=== PATIENT | male | born 1975 | race Caucasian/White ===

== ENCOUNTER 2016-10-18 22:54 | Emergency (ER) | payer OTHER ==
[~2016-10-18] VITALS: Ht 195.6 cm; Wt 136.4 kg
[~2016-10-18 22:54] MED LIST: Amoxicillin/Clavulanate K PO; LISI1TAB PO
[2016-10-18 22:56] VITALS: BP 132/82; PULSE 75; RESP 16; O2SAT 95
[2016-10-19 00:04] LABS: BASOPHILS % (AUTO) 0.2 % (0-3); EOSINOPHILS % (AUTO) 1.8 % (0-5); MONOCYTES % (AUTO) 13.3 % (4-12); Mean Corpuscular Hemoglobin 30.2 pg (27.0-35.0); Mean Corpuscular Volume 91.5 fL (81-100); NEUTROPHILS % (AUTO) 47.8 % (40-74); Platelet Count 198 bil/L (150-400)
--- NOTE | 2016-10-19 00:44 | ED.REPORT ---
HPI-URI / Cough / Cold Date of Service Oct 19, 2016 ED Provider: Michele Berumen DO A 41 year old male with a history of hypertension, sleep apnea, difficulty voiding presents to the ED complaining of a productive cough. The pt's symptoms began two days ago with chills and body aches. This progressed to fever of 101.2 degrees, abdominal pain, back pain, difficulty voiding his bladder, and cough. He denies dysuria. The pt was seen today in Urgent Care and told to stay hydrated and take Advil. He has done so but his symptoms have continued to worsen. Nursing Notes Stated Complaint: ABD/ FEVER Chief Complaint: FLU/Cold Symptoms Nursing Notes Reviewed: Yes Allergies: Coded Allergies: No Known Allergies (Unverified Allergy, Unknown, 10/18/16) Scheduled ([Amoxicillin/Clavulanate K]) 1 TAB TABLET 1 TAB PO BID Lisinopril/Hydrochlorothiazide (Zestoretic 20-12.5 Mg Tablet) 1 Each Tablet 1 TAB PO DAILY General Time Seen by MD: 00:44 Chief Complaint Other (Cough) Hx Obtained From: Patient Arrived By: Walk-in Onset Occurred: 2 days ago Symptom Duration: Since onset Recent Healthcare: No recent hospitalization, Recent doctor visit Similar Sx Previous: No Past Medical History Past Medical History hypertension sleep apnea difficulty voiding Past Surgical History none reported Smoking History Unknown if Ever Smoker Social History Other Social History: Ambulatory Status Independent Review of Systems Review of Systems Note: difficulty voiding Constitutional: Reports: Chills, Fever Respiratory: Reports: Prod cough, clear GI: Reports: Abdominal pain, Denies: Nausea, Vomiting Complete sys rev & neg: except as marked. Male: Denies Dysuria Musculoskeletal: Reports: Back pain, Myalgia Physical Exam Initial Vital Signs Vital Signs (First) Date Time Temp Pulse Resp B/P Pulse Ox O2 Delivery O2 Flow Rate FiO2 10/18/16 22:56 36.9 75 16 132/82 95 Room Air Initial VS: Reviewed General/Constitutional: Awake, Alert ENT: Atraumatic, Airway patent, Mucous membranes moist Respiratory / Chest: Atraumatic, No respiratory distress rhonchi and egophony in the left chest Head / Eyes: Atraumatic, Normocephalic, PERRL, EOMI Neck: Atraumatic, Supple, Full range of motion Cardiovascular: Heart rate NL, Regular rhythm, Heart sounds NL Abdomen: Atraumatic, Soft, Non-tender Skin: Atraumatic, Color NL, No rash, Warm, Dry Neurologic: Oriented X3, Speech NL, No motor deficits, No sensory deficits Back: Atraumatic, Full range of motion Upper Extremity / MS: Atraumatic, Full range of motion Lower Extremity / Pelvis / MS: Atraumatic, Full range of motion Psychiatric: Affect NL, Mood NL Interpretation & Diagnostics Lab Results Interpretation Result Diagram: 10/18/16 2355 10/18/16 2355 Test 10/18/16 23:55 10/19/16 02:00 White Blood Count 5.0th/mm3 (3.8-10.1) Red Blood Count 4.93mil/mm3 (4.40-5.80) Hemoglobin 14.9g/dL (13.8-17.2) Hematocrit 45.1% (41.0-50.0) Mean Corpuscular Volume 91.5fL (81-100) Mean Corpuscular Hemoglobin 30.2pg (27.0-35.0) Mean Corpuscular Hemoglobin Concent 33.0% (32.0-37.0) Red Cell Distribution Width 12.7% (12.3-15.4) Platelet Count 198bil/L (150-400) Neutrophils (%) (Auto) 47.8% (40-74) Lymphocytes (%) (Auto) 36.3% (14-46) Monocytes (%) (Auto) 13.3% (4-12) Eosinophils (%) (Auto) 1.8% (0-5) Basophils (%) (Auto) 0.2% (0-3) D-Dimer < 0.5mg/L (<0.50) Hold Blue Top Tube Received (Received) Sodium Level 142mEq/L (134-144) Potassium Level 4.3mEq/L (3.5-5.2) Chloride Level 104mEq/L (97-108) Carbon Dioxide Level 25mmol/L (18-29) Blood Urea Nitrogen 16mg/dL (6-24) Creatinine 1.11mg/dL (0.76-1.27) Estimat Glomerular Filtration Rate 77mL/min (>59) Glucose Level 176mg/dL (60-99) Calcium Level 8.5mg/dL (8.5-10.1) Total Bilirubin 0.3mg/dL (0.0-1.2) Aspartate Amino Transf (AST/SGOT) 58U/L (0-50) Alanine Aminotransferase (ALT/SGPT) 91U/L (0-44) Alkaline Phosphatase 70U/L (25-150) Total Protein 6.7g/dL (6.4-8.4) Albumin 4.3g/dL (3.4-5.0) Procalcitonin 0.10ng/mL (0.00-0.08) Hold Red Top Tube Received (Received) Hold [place] Top Tube Received (Received) Hold [place] Top Tube Received (Received) Hold Urine Received (Received) Pulse Oximetry Interpretation Pulse Oximetry Interpretation: 95% on room air Pulse Oximetry: Pulse Ox normal X-Ray Chest Interpretation Chest Xray Interpretation: patchy retrocardiac infiltrate Interpretation / Wet Read by: Wet read ED physician Re-Eval/Medical Decision Source of Hx: Old records Re-Evaluation/Progress : Time of Eval: 02:45 Patient Status: Condition improved Re-Evaluation/Progress Note: Pt rechecked, who is resting comfortably. Diagnosis and the plan for discharge are discussed. The pt understands and agrees with the plan. All questions are addressed at this time. Counseled Regarding: Diagnosis, Lab results, Need for follow-up, When/why to return to ED Discharge & Departure Impression: Primary Impression: Pneumonia Pneumonia type: due to unspecified organism Laterality: left Lung location : lower lobe of lung Qualified Code: J18.9 - Pneumonia, unspecified organism Disposition: Home Discharge Condition All VS Reviewed: Yes Condition: Stable Patient Instructions: Bacterial Pneumonia (DC) Additional Instructions: Amoxicillin 3 times daily for 7 days. Finish the Z-Baltazar. Naprosyn twice daily as directed for body aches and pain. Drink plenty of liquids. Follow up with your primary care physician next week. Have your primary care physician follow up with the laboratory work as well. You did have elevated liver enzymes and this needs to be discussed with your doctor. Do not consume any acetaminophen- containing products until you follow up with your primary care physician. Return if any problems or any worsening symptoms. I recommend that you have follow-up liver enzymes in the next 3-5 days. Referrals: Mariano Zhu MD (PCP) Scribe Attestation Portions of this note were transcribed by Bubba Isabel. I, Dr. Berumen personally performed the history, physical exam and medical decision-making; I reviewed and confirmed the accuracy of the information in the transcribed note. Signed by: Tres Lopez, 10/19/2016 and 0301. copies to: Mariano Zhu MD, Todd P DO Oct 19, 2016 00:44 BUBBA ISABEL Oct 19, 2016 01:24
[2016-10-19] MEDS ORDERED: cefTRIAXone Inj 2,000 MG in Dextrose 5% Minibag Plus 50 ML IV ONE (01:25)
[2016-10-19] MEDS ORDERED: 0.9% Sodium Chloride 1,000 ML IV SCH (01:25)
[2016-10-19 03:10] VITALS: BP 122/75; PULSE 62; RESP 18; O2SAT 98
--- NOTE | 2016-10-19 09:32 | DRSVH ---
PROCEDURE: X-RAY CHEST, TWO VIEWS ([id number]) INDICATIONS: Cough TECHNIQUE: 2 views of the chest were acquired. COMPARISON: [facility] Newsome, CHEST 2VW, 08/09/2016, 5:54 PM. FINDINGS: Surgical changes and devices: None. Lungs and pleura: No pleural effusions or pneumothorax. Lungs are clear. Mediastinum: Mediastinal contours are normal. Heart size is normal. Bones and chest wall: No suspicious bony abnormalities. Soft tissues appear unremarkable. IMPRESSION: No acute cardiopulmonary disease. Dictated by: Salinas Navarro [facility] Interpreted: Stephanie Chandler MD on 10/19/2016 at 9:31 Transcribed by: BEN on 10/19/2016 at 9:31 Approved by: Stephanie Chandler MD, PhD on 10/19/2016 at 16:49
== END 2016-10-19 03:11 | disposition home or self-care (01) ==
LOC: SED 22:54
DX: J18.9 Pneumonia, unspecified organism (principal)
CPT/HCPCS: 36415; 71020; 80053; 84145; 85025; 85379; 87804; 96365; 99285; J0696; J7030